=== PATIENT | female | born 1975 | race Two or more races ===

== ENCOUNTER 2017-08-01 16:52 | Emergency (ER) | payer MEDICAID ==
[~2017-08-01] VITALS: Ht 167.6 cm; Wt 89.0 kg
[~2017-08-01 16:52] MED LIST: LORA1TAB PO
[2017-08-01 17:07] VITALS: Ht 167.6 cm; Wt 89.0 kg
--- NOTE | 2017-08-01 19:45 | ERD ---
ER Documentation Chief Complaint Date/Time DATE: 08/01/17 TIME: 19:45 Chief Complaint anxiety x 3 days HPI This is a 42-year-old female who presents emergency department today complaining of intermittent episodes of heart palpitations feeling shortness of breath, something stuck in her throat and numbness and tingling in her hands and face. Patient states this has been happening to her intermittently. States she was seen here on his 25th and was given medication at that time. States she only has 1 pill left and she would like a refill on that medication. She is concerned about her thyroid and that there is "something wrong with her ". States that she did have symptoms while she was in the waiting room however denies any symptoms currently. Denies any fevers or chills, dizziness, blurred vision, headache or chest pain. ROS All systems reviewed and are negative except as per history of present illness. Medications Home Meds Active Scripts Lorazepam* (Lorazepam*) 1 Mg Tablet, 1 MG PO Q8, #7 TAB Prov:MAXWELL ALBARRAN PA-C 08/01/17 Lorazepam* (Lorazepam*) 1 Mg Tablet, 1 MG PO Q8, #10 TAB Prov:KATHY MURILLO PA-C 06/21/17 Allergies Allergies: Coded Allergies: No Known Allergy (Unverified , 08/01/17) PMhx/Soc Medical and Surgical Hx: pt denies Surgical Hx History of Surgery: No Anesthesia Reaction: No Hx Neurological Disorder: No Hx Respiratory Disorders: No Hx Cardiac Disorders: No Hx Psychiatric Problems: No Hx Miscellaneous Medical Probl: Yes (Anxiety) Hx Alcohol Use: No Hx Substance Use: No Hx Tobacco Use: No Smoking Status: Never smoker Physical Exam Vitals Vital Signs Date Time Temp Pulse Resp B/P Pulse Ox O2 Delivery O2 Flow Rate FiO2 08/01/17 17:07 97.6 82 18 122/75 99 Physical Exam Const: smiling, NAD Head: Atraumatic Eyes: Normal Conjunctiva ENT: Normal External Ears, Nose and Mouth. Throat No erythema no exudate no vesicles. Neck: Full range of motion..~ No meningismus. Resp: Clear to auscultation bilaterally Cardio: Regular rate and rhythm, no murmurs Abd: Soft, non tender, non distended. Normal bowel sounds Skin: No petechiae or rashes Back: No midline or flank tenderness Ext: No cyanosis, or edema Neur: Awake and alert Psych: Normal Mood and Affect Procedures/MDM This is a 42-year-old female who presents the emergency department today complaining of intermittent heart palpitations, numbness and tingling her hands and face and feeling that something stuck in her throat. Patient's physical exam is benign. She is afebrile and otherwise well-appearing. Her oxygen saturation is 99%. I do not feel the patient requires further workup or imaging at this time. Upon review of patient's medical records patient was seen here June 21, 2017 with her complaints and had a full laboratory workup, EKG and chest x-ray that were all negative. Patient was given 10 tablets of Ativan at that time. Patient showed me the bottle and she does have one left. She did indicate that she has an appointment with her doctor on August 08, 2017 and would like enough medication to hold her over until that time. Upon review of [facility] report does not appear to have any other visits prior to June 21 to any local emergency rooms for any stated complaint at all. I do not feel the patient is abusing her medication. I do feel it is reasonable to give her 7 tablets that will hold her over until her appointment on August 08. Patient indicated that she had taken 1 mg Ativan prior to arrival and this helped her. Patient was driving herself and I do not feel it is beneficial to the patient to give her more Ativan here in the emergency department. She is in no acute distress. She is happy and smiling and is requesting to go home. I did obtain an EKG for complaints of heart palpitations. EKG read and interpreted by Dr. Cardenas rate [address] elevation. No QT prolongation. Low suspicion for acute GA, PE, pericarditis. At this time is consistent with anxiety related symptoms. She does indicate that the Ativan does help her when she gets the symptoms. Patient did endorse having a lot of stresses in her life and in her home situation. I have encouraged her to follow-up with her primary care doctor as planned and I have encouraged her to request referral information for counseling centers. I have low suspicion for sepsis, severe acute bacterial infection, acute cardiac abnormality. At this time the patient is stable for discharge and outpatient management. Patient should follow up with their PCP in the next 1-2 days. They may return to the emergency department sooner for any persistent or worsening of symptoms. Patient understood and agreed with the plan. Departure Diagnosis: Primary Impression: Heart palpitations Condition: MAXWELL Huff PA-C Aug 01, 2017 19:45
[2017-08-01] MEDS ORDERED: LORA1TAB PO (19:51)
[2017-08-01 20:19] VITALS: BP 118/73; PULSE 82; RESP 16; TEMP 98.5
== END 2017-08-01 20:19 | disposition home or self-care (01) ==
LOC: FTE 16:52
DX: R00.2 Palpitations (principal)
CPT/HCPCS: 93005; Z7502

== ENCOUNTER 2018-10-29 17:12 | Emergency (ER) | payer MEDICAID, OTHER ==
[~2018-10-29] VITALS: Ht 160 cm; Wt 84.4 kg
[2018-10-29 17:18] VITALS: BP 128/81; PULSE 88; RESP 20; Ht 160 cm; Wt 84.4 kg
[2018-10-29] MEDS ORDERED: IBUP-1542 PO (21:43)
--- NOTE | 2018-10-29 21:48 | ERD ---
ER Documentation Chief Complaint Chief Complaint c/o dysuria and generalized weakness x3 days HPI 43-year-old female presents with 3-day history of sensation dysuria and generalized fatigue. She denies any fevers, vomiting, sore throat, cough, abdominal pain, vomiting, diarrhea. She has previous history of UTI. She denies . ROS All systems reviewed and are negative except as per history of present illness. Medications Home Meds Active Scripts Ibuprofen* (Motrin*) 600 Mg Tab, 600 MG PO Q6, #20 TAB Prov:NIALL MAURER MD 10/29/18 Lorazepam* (Lorazepam*) 1 Mg Tablet, 1 MG PO Q8, #7 TAB Prov:MAXWELL ALBARRAN PA-C 08/01/17 Lorazepam* (Lorazepam*) 1 Mg Tablet, 1 MG PO Q8, #10 TAB Prov:KATHY MURILLO PA-C 06/21/17 Allergies Allergies: Coded Allergies: No Known Allergy (Unverified , 08/01/17) PMhx/Soc Medical and Surgical Hx: pt denies Medical Hx, pt denies Surgical Hx History of Surgery: No Anesthesia Reaction: No Hx Neurological Disorder: No Hx Respiratory Disorders: No Hx Cardiac Disorders: No Hx Psychiatric Problems: No Hx Miscellaneous Medical Probl: Yes (Anxiety) Hx Alcohol Use: No Hx Substance Use: No Hx Tobacco Use: No Smoking Status: Never smoker FmHx Family History: No diabetes, No coronary disease, No other Physical Exam Vitals Vital Signs Date Temp Pulse Resp B/P (MAP) Pulse Ox O2 O2 Flow FiO2 Time Delivery Rate 10/29/18 97.8 88 20 128/81 97 17:18 (97) Physical Exam Const: No acute distress Head: Atraumatic Eyes: Normal Conjunctiva ENT: Normal External Ears, Nose and Mouth. Neck: Full range of motion. No meningismus. Resp: Clear to auscultation bilaterally Cardio: Regular rate and rhythm, no murmurs Abd: Soft, non tender, non distended. Normal bowel sounds Skin: No petechiae or rashes Back: No midline or flank tenderness Ext: No cyanosis, or edema Neur: Awake and alert Psych: Normal Mood and Affect Result Diagram: 10/29/18 2100 10/29/18 2100 Results 24 hrs Laboratory Tests Test 10/29/18 21:00 10/29/18 21:02 White Blood Count 5.1 10^3/ul Red Blood Count 4.97 10^6/ul Hemoglobin 13.3 g/dl Hematocrit 42.8 % Mean Corpuscular Volume 86.1 fl Mean Corpuscular Hemoglobin 26.8 pg Mean Corpuscular Hemoglobin Concent 31.1 g/dl Red Cell Distribution Width 13.3 % Platelet Count 331 10^3/UL Mean Platelet Volume 9.2 fl Immature Granulocytes % 0.400 % Neutrophils % 44.0 % Lymphocytes % 46.1 % Monocytes % 6.8 % Eosinophils % 2.1 % Basophils % 0.6 % Nucleated Red Blood Cells % 0.0 /100WBC Immature Granulocytes # 0.020 10^3/ul Neutrophils # 2.3 10^3/ul Lymphocytes # 2.4 10^3/ul Monocytes # 0.4 10^3/ul Eosinophils # 0.1 10^3/ul Basophils # 0.0 10^3/ul Nucleated Red Blood Cells # 0.0 10^3/ul Urine Color YELLOW Urine Clarity CLEAR Urine pH 5.0 Urine Specific [place] 1.027 Urine Ketones 1+ mg/dL Urine Nitrite NEGATIVE mg/dL Urine Bilirubin NEGATIVE mg/dL Urine Urobilinogen 1+ mg/dL Urine Leukocyte Esterase NEGATIVE Nanci/ul Urine Microscopic RBC 3 /HPF Urine Microscopic WBC 1 /HPF Urine Squamous Epithelial Cells FEW /HPF Urine Mucus FEW /HPF Urine Hemoglobin 1+ mg/dL Urine Glucose NEGATIVE mg/dL Urine Total Protein NEGATIVE mg/dl Sodium Level 141 mmol/L Potassium Level 3.9 mmol/L Chloride Level 105 mmol/L Carbon Dioxide Level 27 mmol/L Anion Gap 9 Blood Urea Nitrogen 17 mg/dl Creatinine 0.55 mg/dl Est Glomerular Filtrat Rate mL/min > 60 mL/min Glucose Level 93 mg/dl Calcium Level 9.0 mg/dl Total Bilirubin 0.1 mg/dl Direct Bilirubin 0.00 mg/dl Indirect Bilirubin 0.1 mg/dl Aspartate Amino Transf (AST/SGOT) 22 IU/L Alanine Aminotransferase (ALT/SGPT) 33 IU/L Alkaline Phosphatase 66 IU/L Total Protein 7.1 g/dl Albumin 4.4 g/dl Globulin 2.70 g/dl Albumin/Globulin Ratio 1.62 POC Beta HCG, Qualitative NEGATIVE Procedures/MDM Urine shows no significant signs of infection or acute abnormalities. CBC, CMP normal. Patient presents with fatigue, sensation of dysuria of uncertain etiology. Urine was sent for culture and gonorrhea chlamydia. Patient may have early viral illness. She will treated with ibuprofen, instructions for fluids, rest, primary care follow-up and return precautions. The patient was stable with no new complaints during the ER course. Clinically, there is no current evidence to suggest meningitis, sepsis, acute abdomen, pneumonia, stroke, acute coronary syndrome, pulmonary embolism, aortic dissection or any other emergent condition appearing to require further evaluation or hospitalization. Patient counseled regarding my diagnostic impression and care plan. Prior to discharge all questions answered. Pt agrees with treatment plan and understands strict return precautions. Pt is instructed to follow up with primary care provider within 24-48 hours. Precautionary instructions provided including instructions to return to the ER if not improving or for any worsening or changing symptoms or concerns. Departure Diagnosis: Primary Impression: Dysuria Condition: Stable Patient Instructions: Dysuria, Symptoms With Uncertain Cause Referrals: DOCTOR,NOT ON STAFF (PCP) COMM[facility] YOU HAVE RECEIVED A MEDICAL SCREENING EXAM AND THE RESULTS INDICATE THAT YOU DO NOT HAVE A CONDITION THAT REQUIRES URGENT TREATMENT IN THE EMERGENCY DEPARTMENT. FURTHER EVALUATION AND TREATMENT OF YOUR CONDITION CAN WAIT UNTIL YOU ARE SEEN IN YOUR DOCTORS OFFICE WITHIN THE NEXT 1-2 DAYS. IT IS YOUR RESPONSIBILITY TO MAKE AN APPOINTMENT FOR FOLOW-UP CARE. IF YOU HAVE A PRIMARY DOCTOR --you should call your primary doctor and schedule an appointment IF YOU DO NOT HAVE A PRIMARY DOCTOR YOU CAN CALL OUR PHYSICIAN REFERRAL HOTLINE AT IF YOU CAN NOT AFFORD TO SEE A PHYSICIAN YOU CAN CHOSE FROM THE FOLLOWING [facility] [id number] [facility] [facility] [address] [facility] [address] [facility] [facility] [address] [facility] [facility] [address] [facility]. [facility]. [address] Additional Instructions: All examinations normal today. Plenty of fluids at home and rest. Recheck for new or worsening symptoms with primary care doctor. Urine has been sent for culture. He will be called with abnormal results. NIALL MAURER MD Oct 29, 2018 21:48
[2018-10-29] MEDS ORDERED: FLUC150T PO (21:53)
== END 2018-10-29 22:15 | disposition home or self-care (01) ==
LOC: FTE 17:12
DX: R30.0 Dysuria (principal)
CPT/HCPCS: 80053; 81001; 81025; 85025; 87086; 87591; Z7502; 99283